=== PATIENT | female | born 1965 | race African-American/Black ===

== ENCOUNTER → 2016-06-19 | Outpatient (CLI) | payer BC, OTHER | LOC: RAD 10:50 | PROVIDERS: ATTEND Internal Medicine | DX: R74.9 Abnormal serum enzyme level, unspecified (principal); K76.89 Other specified diseases of liver | CPT/HCPCS: 76700; 93976 ==

== ENCOUNTER → 2016-06-20 | Outpatient (CLI) | payer BC | LOC: RAD 13:20 | PROVIDERS: ATTEND Internal Medicine | DX: D37.6 Neoplasm of uncertain behavior of liver, gallbladder and bile ducts (principal) | CPT/HCPCS: 74183; A9576 ==

== ENCOUNTER → 2016-09-04 | Outpatient (CLI) | payer BC ==
--- NOTE | 2016-09-04 13:18 | RADIOLOGY REPORT (SQ) ---
EXAM DESCRIPTION: MRI LUMBAR SPINE WITHOUT COMPLETED DATE/TIME: 09/04/2016 12:20 pm REASON FOR STUDY: SPINAL STENOSIS, LUMBAR REGION M48.06 SPINAL STENOSIS, LUMBAR REGION M25.561 CORINNA N IN RIGHT KNEE COMPARISON: None. TECHNIQUE: Sagittal and Axial imaging includes T1, T2, STIR and gradient echo sequences. Coronal T2/ HASTE imaging. LIMITATIONS: None. FINDINGS: VISUALIZED UPPER ABDOMEN: Limited evaluation. No acute or suspicious findings suggested. SEGMENTATION: No transitional anatomy. The lowest well-developed disc space is labeled L5-S1. ALIGNMENT: Anatomic. VERTEBRAE: Intact. BONE MARROW: Somewhat heterogenous marrow signal consistent with a mixture of red and yellow marrow. No marrow replacement. DISC SIGNAL: Normal. No significant abnormal signal or loss of height. POSTERIOR ELEMENTS: Generally intact. No pars defect evident. HARDWARE: None in the spine. CORD AND CONUS: Normal in size and signal intensity. Conus at the appropriate level. SOFT TISSUES: No aortic aneurysm seen. No bulky retroperitoneal adenopathy or mass. No paraspinal mas s or fluid. L1-L2: No significant spinal stenosis or exit foraminal stenosis. L2-L3: No significant spinal stenosis or exit foraminal stenosis. L3-L4: Mild facet arthropathy. No disc bulge. No significant spinal stenosis or exit foraminal sten osis. L4-L5: Mild -moderate facet arthropathy. No disc bulge. No significant spinal stenosis or exit fora nakia stenosis. L5-S1: Right paracentral disc protrusion with right lateral recess stenosis and impingement of the ri ght S1 nerve root. There is also a right exit foraminal stenosis. LOWER THORACIC: Incompletely imaged. No stenosis seen. SACRUM: Visualized upper sacrum intact. OTHER: No other significant findings. IMPRESSION: 1. RIGHT PARACENTRAL DISC PROTRUSION AT L5-S1 WITH RIGHT LATERAL RECESS STENOSIS AND IMPINGEMENT OF T HE RIGHT S1 NERVE ROOT. RIGHT EXIT FORAMINAL STENOSIS. 2. THE REMAINDER OF THE LUMBAR SPINE IS OTHERWISE UNREMARKABLE, OTHER THAN MILD FACET ARTHROPATHY. TECHNICAL DOCUMENTATION: JOB ID: [id number] [employer]- All Rights Reserved
--- NOTE | 2016-09-05 09:44 | RADIOLOGY REPORT (SQ) ---
EXAM DESCRIPTION: MRI RT LOWER JOINT WITHOUT COMPLETED DATE/TIME: 09/04/2016 12:20 pm REASON FOR STUDY: RT KNEE PAIN M48.06 SPINAL STENOSIS, LUMBAR REGION M25.561 PAIN IN RIGHT KNEE COMPARISON: None. TECHNIQUE: Rightknee images acquired and stored on PACS. Multiplanar images include fat sensitive s equences as T1, water sensitive sequences as FST2 or STIR, cartilage sensitive sequences as FSPD, and gradient echo sequences. LIMITATIONS: Motion. FINDINGS: JOINT AND BURSAE: No effusion. BONE CORTEX AND MARROW: No alteration of signal to suggest marrow replacement. No worrisome bone lesi ons. No occult fracture. ACL: Ganglion cyst along the posterior margin measuring about 1 x 1.5 cm. PCL: Intact. MCL: Intact. No periligamentous edema or fluid. LCL: Intact. No periligamentous edema or fluid. MEDIAL MENISCUS: Increased signal posterior horn abuts the inferior articular surface in the longitud inal plane. No displaced meniscal fragment. LATERAL MENISCUS: Intact. MEDIAL COMPARTMENT: Small osteophytes. Subchondral edema in the tibial plateau near the notch. LATERAL COMPARTMENT: Small osteophytes. PATELLA: Thinning of the articular cartilage. Small osteophytes. Intact retinaculum. EXTENSOR MECHANISM: Intact. Quadriceps and patella tendons normal. SOFT TISSUES: Adjacent muscles and subcutaneous tissues normal. Normal flow void in popliteal artery and vein. OTHER: No other significant finding. IMPRESSION: 1. Small longitudinal tear posterior horn medial meniscus. 2. ACL ganglion cyst. 3. Osteoarthritis. TECHNICAL DOCUMENTATION: JOB ID: [id number] All Rights Reserved
== END ==
LOC: RAD 10:27
PROVIDERS: ATTEND Internal Medicine
DX: M48.06 Spinal stenosis, lumbar region (principal); M25.561 Pain in right knee; M17.11 Unilateral primary osteoarthritis, right knee
CPT/HCPCS: 72148

== ENCOUNTER 2016-09-20 06:26 | Day surgery (SDC) | payer BC ==
[~2016-09-20 06:26] MED LIST: CEFAZOLIN 1 GM/D5W RTU 1 GM/50 ML RTUPB IV PRN
[2016-09-20] MEDS ORDERED: MIDAZOLAM 2 MG/2 ML INJ ONE (06:36)
[2016-09-20] MEDS ORDERED: FENTANYL CITRATE INJ/PF 100 MCG/2 ML AMPUL ONE (06:36)
[2016-09-20] MEDS ORDERED: DEXMEDETOMIDINE INJ 80 MCG/20 ML VIAL IV ONE (06:36)
[2016-09-20] MEDS ORDERED: LIDOCAINE 0.5% INJ-PF (5 MG/ML) 50 ML SDV ONE (06:37)
[2016-09-20] MEDS ORDERED: PROPOFOL INJ 200 MG/20 ML VIAL IV ONE (06:37)
[2016-09-20] MEDS ORDERED: BUPIVACAINE HCL 0.5 % INJ/PF 30 ML SDV ONE (07:20)
[2016-09-20] MEDS ORDERED: LIDOCAINE 2% INJ (20 MG/ML) 20 ML MDV ONE (07:20)
[2016-09-20] MEDS ORDERED: KETAMINE HCL INJ 500 MG/10 ML VIAL ONE (07:52)
[2016-09-20] MEDS: NORMAL SALINE INJ/PF 0.9% 10 ML SDV ONE ×2 (08:45)
[2016-09-20] MEDS: POLYMYXIN B SULFATE INJ 500000 UNIT VIAL ONE ×2 (08:45)
[2016-09-20] MEDS: BACITRACIN INJ 50,000 UNIT VIAL ONE ×2 (08:45)
[2016-09-20] MEDS: BUPIVACAINE INJ/PF LIPOSOME/PF 266 MG/20 ML SDV ONE ×2 (09:05)
[2016-09-20] MEDS ORDERED: GLYCOPYRROLATE INJ 0.4 MG/2 ML VIAL ONE (09:34)
--- NOTE | 2016-09-20 10:19 | SURGICARE DISCHARGE SUMMARY E ---
[facility] Discharge Summary NAME: Madina SAUCEDA AGE: 51Y ADMITTED: 09/20/2016 DISCHARGED: 09/20/2016 SURGICAL PROCEDURE: Correction of bunion via Moses osteotomy with internal screw fixation, right foot. POSTOPERATIVE DIAGNOSIS: Hallux abductovalgus, right foot. SURGEON: Emma Jones DPM CASH REGISTER SERVICER: Daniel Abdul DPM HOSPITAL COURSE: The patient was admitted to [facility] with the chief complaint of a painful bunion on her right foot. She stated that she has had it for a number of years and it had gotten worse over the past year, especially whenever she has to wear shoes. The patient had undergone conservative treatment, including a steroid injection, with no relief of her symptoms. She underwent the above surgical procedure without any complications and was transferred to the recovery room. She was discharged with an ice pack and a surgical shoe. She was given postoperative instructions, including no weightbearing on the surgical foot. She was given postoperative prescriptions for Dilaudid 4 mg #48, Phenergan 25 mg #24, and cephalexin 500 mg #4. She was given a follow-up appointment in the doctor's office in 1 week, and the patient was discharged from [facility]. DICTATING PHYSICIAN: EMMA JONES D.P.M. [id number] PHY#: [id number] ID: [id number] JOB#: [id number] ACCT: [id number] cc:EMMA JONES DPM >
--- NOTE | 2016-09-20 10:51 | [facility]ARE OPERATIVE REPORT E ---
[facility] Operative Report NAME: JORGE SAUCEDA AGE: 51Y DATE OF SURGERY: 09/20/2016 ROOM: PREOPERATIVE DIAGNOSIS: Hallux abductovalgus right foot. POSTOPERATIVE DIAGNOSIS: Hallux abductovalgus right foot. SURGICAL PROCEDURE: Correction of bunion via Moses osteotomy with internal screw fixation right foot. SURGEON: CHAPIS ANDREWS DPM MARKET RESEARCHER: Daniel Abdul DPM PROCEDURE: Following induction of IV and regional local anesthesia, the right foot and leg were prepped and draped in the usual sterile manner. A pneumatic tourniquet was placed around the right ankle and inflated to 250 mmHg after exsanguination of the limb via Esmarch bandage. The following surgical procedure was then performed: Correction of bunion via Moses osteotomy with internal screw fixation, right foot. Attention was directed to the dorsal aspect of the first metatarsophalangeal joint of the right foot, where an approximately 5 cm dorsal linear incision was made. The incision was deepened via sharp dissection. All bleeders were clamped and Bovied as necessary for the purposes of hemostasis. A capsular incision was made in the same manner as the original skin incision and was made medial to the extensor hallucis longus tendon. The capsule was then reflected medially and laterally from the bone. This brought into view the hypertrophied medial eminence of the first metatarsal head. Utilizing a Samina sagittal saw, this hypertrophied eminence was osteotomized parallel to the long axis of the bone and removed in toto from the wound. Attention was directed to the first interspace. Utilizing blunt dissection, the transverse adductor tendon was identified and sharply incised. Attention was directed back to the medial aspect of the first metatarsal head. Utilizing a [place] sagittal saw, Moses type osteotomy was then performed with the apex being distal and the wings plantar and dorsal at approximately a 60 degree angle. This was a through and through osteotomy. The capital fragment was then distracted and shifted laterally approximately 5 mm and packed down on the bone. The osteotomy was then temporarily fixated with a 0.045 K-wire. An x-ray was taken to make sure that the wire was in good position and that the capital fragment had been shifted far enough laterally, which it had and the first metatarsophalangeal joint was in an anatomically and correct position. A reamer measure was then threaded down the guidewire and a hole was reamed for the head of the screw and it was noted that an 18 mm 3.0 cancellous screw would be needed. The distal aspect of the osteotomy was then over drilled utilizing a 2.0 cannulated drill bit. The 18 mm 3.0 cannulated screw was then threaded down the guidewire and tightened down until the osteotomy was closed. The guidewire was then removed. It was decided at this time that since the patient's bone was rather soft, that a second screw would be necessary. A second screw was placed parallel to the first and approximately 0.5 cm proximal to it. The same 0.045 guidewire was then used for the exact same procedure that was done for the 18 mm screw was then performed for the next screw and it was noted this one needed a 16 mm 3.0 cannulated screw. Both screws were then tightened down again. An x-ray was taken and it was noted that the first metatarsophalangeal joint was in an anatomically correct position and that the osteotomy was closed down on itself and stably fixated. The redundant bone on the medial aspect of the first metatarsal head was then osteotomized parallel to the long axis of the bone utilizing a Step-In sagittal saw. The medial aspect of the first metatarsal head was then rasped smooth utilizing a Step-In crosscut rasp. It was noted at this time that there was hypertrophy of bone along the dorsal aspect at the base of the proximal phalanx and this was removed utilizing a rongeur. The area was then flushed with copious amounts of an antibacterial saline solution. Bone wax was then applied to the medial aspect of the first metatarsal. The capsule was then coapted and maintained utilizing simple interrupted sutures of 3-0 Vicryl. The extensor hallucis longus tendon was then tacked medially utilizing simple interrupted sutures of 3-0 Vicryl. The surgical site was then injected utilizing a total of 18 mL of Exparel. The subcutaneous tissue was then coapted and maintained utilizing simple interrupted sutures of 4-0 Vicryl and the skin was coapted and maintained utilizing a running subcuticular suture of 5-0 Vicryl. The foot was then cleansed with an alcohol foam and an MARIA DEL CARMEN and Steri-Strips were then applied to the incision. A dry sterile dressing was then applied consisting of Noe silk, 4 x 4, Conform, Kerlix and Coban. The pneumatic tourniquet was released. It was noted that all digits were warm and viable. The patient was transferred to the recovery room. DICTATING PHYSICIAN: CHAPIS ANDREWS D.P.M. [id number] PHY#: [id number] ID: [id number] JOB#: [id number] ACCT: [id number] cc:CHAPIS ANDREWS DPM > MTDD
--- NOTE | 2016-09-20 14:32 | RADIOLOGY REPORT (SQ) ---
EXAM DESCRIPTION: NO CHG FLUORO COMPLETE DATE/TIME: 09/20/2016 2:26 pm REASON FOR STUDY: RIGHT FOOT JAY BUNIONECTOMY M20.11 HALLUX VALGUS (ACQUIRED), RIGHT FOOT FINDINGS: Please see combined report for performance of procedure and radiologic supervision and int erpretation. IMPRESSION: Please see combined report for performance of procedure and radiologic supervision and i nterpretation.
--- NOTE | 2016-09-20 14:33 | RADIOLOGY REPORT (SQ) ---
EXAM DESCRIPTION: FOOT RIGHT 2 VIEWS COMPLETED DATE/TIME: 09/20/2016 2:26 pm REASON FOR STUDY: RIGHT FOOT JAY BUNIONECTOMY M20.11 HALLUX VALGUS (ACQUIRED), RIGHT FOOT COMPARISON: None. FLUOROSCOPY TIME: 0.14 seconds 2 images saved to PACS. TECHNIQUE: Intra-operative images acquired during surgical procedure to evaluate progress. NUMBER OF IMAGES: 2 LIMITATIONS: None. FINDINGS: Fluoroscopy was provided for intraoperative procedure. Please refer to the operative repo rt for further discussion. IMPRESSION: IMAGE(S) OBTAINED DURING PROCEDURE. COMMENT: Quality ID [id number]: Final reports for procedures using fluoroscopy that document radiation exp osure indices, or exposure time and number of fluorographic images (if radiation exposure indices are not available) Please consult full operative report of the attending physician for description of the procedure. TECHNICAL DOCUMENTATION: JOB ID: [id number] [employer]- All Rights Reserved
== END 2016-09-20 10:29 | disposition home or self-care (01) ==
LOC: SC 06:26
PROVIDERS: ATTEND Podiatrist Foot Surgery
PROC: 0QSQ04Z Reposition Right Toe Phalanx with Internal Fixation Device, Open Approach (ICD-10-PCS; principal; 2016-09-20 07:30)
DX: M20.11 Hallux valgus (acquired), right foot (principal); E78.00 Pure hypercholesterolemia, unspecified; I10 Essential (primary) hypertension; M10.9 Gout, unspecified; A60.00 Herpesviral infection of urogenital system, unspecified; Z88.0 Allergy status to penicillin; Z79.899 Other long term (current) drug therapy; Z98.84 Bariatric surgery status
CPT/HCPCS: 28296; 73620; C1713; C1769; J2250; J3490 ×7; J0690; J3010; J2704; C9290; 01480

== ENCOUNTER → 2017-04-04 | Outpatient (CLI) | payer BC ==
--- NOTE | 2017-04-04 18:54 | WOMENS IMAGING REPORT ---
EXAM DESCRIPTION: 3D SCREENING MAMMO BILAT COMPLETED DATE/TIME: 04/04/2017 8:12 am REASON FOR STUDY: ROUTINE SCREENING; Z12.31 Z12.31 ENCNTR SCREEN MAMMOGRAM FOR MALIGNANT NEOPLASM O F CORDELL COMPARISON: Multiple since 2008 TECHNIQUE: Standard craniocaudal and mediolateral oblique views of each breast recorded using digita l acquisition and breast tomosynthesis. LIMITATIONS: None. FINDINGS: No masses, calcifications or architectural distortion. No areas of suspicion. Read with the assistance of CAD. .[facility] - R2 Cenova Version 1.3 .[facility] - R2 Cenova Version 1.3 .[facility] - R2 Cenova Version 2.4 .[facility] - R2 Cenova Version 2.4 .[facility] - R2 Establishment Guide Version 9.2 IMPRESSION: NORMAL MAMMOGRAM. BIRADS 1. BREAST DENSITY: b. There are scattered areas of fibroglandular density. BIRAD: 1 NEGATIVE RECOMMENDATION: ROUTINE SCREENING Please continue yearly bilateral screening tomosynthesis in March 2018 COMMENT: The patient has been notified of the results by letter per SA requirements. Additional no tification policies are in place for contacting patient with suspicious or incomplete findings. Quality ID #225: The [employer] [employer] recommends an annual screening mammogram for women aged 40 years or over. This facility utilizes a reminder system to ensure that all patients receive reminder letters, and/or direct phone calls for appointments. This includes reminders for routine scr eening mammograms, diagnostic mammograms, or other Breast Imaging Interventions when appropriate. Th is patient will be placed in the appropriate reminder system. The [place] [employer] (ACR) has developed recommendations for screening MRI of the breast s in certain patient populations, to be used in conjunction with mammography. Breast MRI surveillanc e may be appropriate for women with more than 20% lifetime risk of developing breast cancer as deter mined by genetic testing, significant family history of the disease, or history of mantle radiation f or Hodgkins Disease. ACR Practice Guidelines 2008. DBT Technology DBT is a type of tomographic mammography. With conventional mammography, overlapping breast tissue ma y make lesions difficult to detect, even with good compression. DBT uses an x-ray tube that rotates a round the breast, taking images at different angles. These images are then combined to create thin sl ices of the breast that the radiologist can view as a 3D reconstruction. The [employer] unit can perform full-field digital mammograms (2D imaging); or DBT (3D imaging); or both, in a combination mode that quickly performs both the mammogram and the tomosynthesis scan while the breast is still compressed. PQRS 6045F: Fluoroscopic imaging is not utilized for breast tomosynthesis. TECHNICAL DOCUMENTATION: FINDING NUMBER: (1) ASSESSMENT: (1) JOB ID: [id number] [employer]- All Rights Reserved
== END ==
LOC: WI 08:00
PROVIDERS: ATTEND Obstetrics & Gynecology Gynecology
DX: Z12.31 Encounter for screening mammogram for malignant neoplasm of breast (principal)
CPT/HCPCS: 77063; G0202; 77067

== ENCOUNTER → 2018-04-19 | Outpatient (CLI) | payer BC ==
--- NOTE | 2018-04-19 16:59 | WOMENS IMAGING REPORT ---
EXAM DESCRIPTION: 3D SCREENING MAMMO BILAT COMPLETED DATE/TIME: 04/19/2018 3:44 pm REASON FOR STUDY: SCREENING MAMMO Z12.31 ENCNTR SCREEN MAMMOGRAM FOR MALIGNANT NEOPLASM OF CORDELL COMPARISON: Multiple since 2008 TECHNIQUE: Standard craniocaudal and mediolateral oblique views of each breast recorded using digita l acquisition and breast tomosynthesis. LIMITATIONS: None. FINDINGS: No masses, calcifications or architectural distortion. No areas of suspicion. Read with the assistance of CAD. .[facility] - R2 Cenova Version 1.3 .[facility] - R2 Cenova Version 1.3 .[facility] - R2 Cenova Version 2.4 .[facility] - R2 Cenova Version 2.4 .[facility] - R2 Tram Inspector Version 9.2 IMPRESSION: NORMAL MAMMOGRAM. BIRADS 1. BREAST DENSITY: b. There are scattered areas of fibroglandular density. BIRAD: 1 NEGATIVE RECOMMENDATION: ROUTINE SCREENING COMMENT: The patient has been notified of the results by letter per SA requirements. Additional no tification policies are in place for contacting patient with suspicious or incomplete findings. Quality ID #225: The [employer] recommends an annual screening mammogram for women aged 40 years or over. This facility utilizes a reminder system to ensure that all patients receive reminder letters, and/or direct phone calls for appointments. This includes reminders for routine scr eening mammograms, diagnostic mammograms, or other Breast Imaging Interventions when appropriate. Th is patient will be placed in the appropriate reminder system. The [employer] (ACR) has developed recommendations for screening MRI of the breast s in certain patient populations, to be used in conjunction with mammography. Breast MRI surveillanc e may be appropriate for women with more than 20% lifetime risk of developing breast cancer as deter mined by genetic testing, significant family history of the disease, or history of mantle radiation f or Hodgkins Disease. ACR Practice Guidelines 2008. DBT Technology DBT is a type of tomographic mammography. With conventional mammography, overlapping breast tissue ma y make lesions difficult to detect, even with good compression. DBT uses an x-ray tube that rotates a round the breast, taking images at different angles. These images are then combined to create thin sl ices of the breast that the radiologist can view as a 3D reconstruction. The [employer] unit can perform full-field digital mammograms (2D imaging); or DBT (3D imaging); or both, in a combination mode that quickly performs both the mammogram and the tomosynthesis scan while the breast is still compressed. PQRS 6045F: Fluoroscopic imaging is not utilized for breast tomosynthesis. TECHNICAL DOCUMENTATION: FINDING NUMBER: (1) ASSESSMENT: (1) JOB ID: [id number] [employer]- All Rights Reserved Reading location - IP/workstation name: [email or web address]
== END ==
LOC: WI 15:16
PROVIDERS: ATTEND Obstetrics & Gynecology Gynecology
DX: Z12.31 Encounter for screening mammogram for malignant neoplasm of breast (principal)
CPT/HCPCS: 77063; 77067

== ENCOUNTER → 2019-05-01 | Outpatient (CLI) | payer BC, OTHER ==
--- NOTE | 2019-05-01 09:29 | WOMENS IMAGING REPORT ---
EXAM DESCRIPTION: 3D SCREENING MAMMO BILAT COMPLETED DATE/TIME: 05/01/2019 9:03 am REASON FOR STUDY: Z12.31 ENCOUNTER FOR SCREENING MAMMOGRAM FOR MALIGNANT NEOPLASM OF BREAST Z12.31 ENCNTR SCREEN MAMMOGRAM FOR MALIGNANT NEOPLASM OF CORDELL COMPARISON: [id number] EXAM PARAMETERS: Views: Standard craniocaudal and mediolateral oblique views of each breast recorded using digital acquisition and breast tomosynthesis. Read with the assistance of CAD. .[facility] - R2 Balloon Maker Version 9.2 LIMITATIONS: None. FINDINGS: No suspicious masses, suspicious calcifications or architectural distortion. No areas of c oncern. IMPRESSION: NEGATIVE MAMMOGRAM. BIRADS 1. BREAST DENSITY: b. There are scattered areas of fibroglandular density. BIRAD: ASSESSMENT: 1 NEGATIVE RECOMMENDATION: ROUTINE SCREENING COMMENT: The patient has been notified of the results by letter per MQSA requirements. Additional no tification policies are in place for contacting patient with suspicious or incomplete findings. Quality ID #225: The [place] [employer] recommends an annual screening mammogram for women aged 40 years or over. This facility utilizes a reminder system to ensure that all patients receive reminder letters, and/or direct phone calls for appointments. This includes reminders for routine scr eening mammograms, diagnostic mammograms, or other Breast Imaging Interventions when appropriate. Th is patient will be placed in the appropriate reminder system. TECHNICAL DOCUMENTATION: FINDING NUMBER: (1) ASSESSMENT: (1) JOB ID: [id number] [employer]- All Rights Reserved Reading location - IP/workstation name: [email or web address]
== END ==
LOC: WI 07:39
PROVIDERS: ATTEND Obstetrics & Gynecology Gynecology
DX: Z12.31 Encounter for screening mammogram for malignant neoplasm of breast (principal)
CPT/HCPCS: 77063; 77067

== ENCOUNTER 2019-11-10 18:20 | Emergency (ER) | payer BC, OTHER ==
--- NOTE | 2019-11-10 19:44 | ER Document Report ---
ED Medical Screen (RME) - General Chief Complaint: Abdominal Pain Stated Complaint: ABDOMINAL PAIN Time Seen by Provider: 11/10/19 19:37 Primary Care Provider: LIYAH SPRAGUE MD [Primary Care Provider] - Follow up as needed Notes: Patient is a 54-year-old female who presents the emergency department with a chief complaint of mid upper abdominal pain. Patient has history of gastric bypass surgery in the past. Patient states that around 2:00 this afternoon she developed some pain in her mid upper abdomen. Exam: Mildly tender mid upper abdomen. I have greeted and performed a rapid initial assessment of this patient. A comprehensive ED assessment and evaluation of the patient, analysis of test results and completion of medical decision making process will be conducted by an additional ED providers. TRAVEL OUTSIDE OF THE [place] IN LAST 30 DAYS: No - Related Data Allergies/Adverse Reactions: Penicillins Allergy (Intermediate, Verified 09/13/16 13:12) Hives codeine [Codeine] Adverse Reaction (Intermediate, Verified 09/13/16 13:12) Nausea Home Medications: cetritizine.lisinopril,iron,calcium,valacyclovir Past Medical History - Past Medical History Cardiac Medical History: Reports: Hx Hypercholesterolemia, Hx Hypertension Denies: Hx Heart Attack Pulmonary Medical History: Denies: Hx Asthma Neurological Medical History: Denies: Hx Cerebrovascular Accident, Hx Seizures GI Medical History: Denies: Hx Hepatitis, Hx Hiatal Hernia, Hx Ulcer Psychiatric Medical History: Denies: Hx Depression Infectious Medical History: Denies: Hx Hepatitis Past Surgical History: Reports: Hx Cholecystectomy, Hx Gastric Bypass Surgery. Denies: Hx Hysterectomy, Hx Mastectomy, Hx Open Heart Surgery, Hx Pacemaker Physical Exam - Vital signs Vitals: Temp Pulse Resp BP Pulse Ox 98.6 F 64 18 130/80 H 100 11/10/19 18:31 11/10/19 18:31 11/10/19 18:31 11/10/19 18:31 11/10/19 18:31 Course - Vital Signs Vital signs: Temp Pulse Resp BP Pulse Ox 98.6 F 64 18 130/80 H 100 11/10/19 18:31 11/10/19 18:31 11/10/19 18:31 11/10/19 18:31 11/10/19 18:31 Doctor's Discharge - Discharge Referrals: LIYAH SPRAGUE MD [Primary Care Provider] - Follow up as needed
[2019-11-10 20:25] LABS: APPEARANCE,URINE CLEAR; BILIRUBIN,URINE NEGATIVE (NEGATIVE); COLOR,URINE YELLOW; GLUCOSE, URINE NEGATIVE (NEGATIVE); KETONES,URINE TRACE mg/dL (NEGATIVE); LEUKOCYTE ESTERASE,URINE NEGATIVE (NEGATIVE); NITRITE,URINE NEGATIVE (NEGATIVE); PROTEIN,URINE NEGATIVE (NEGATIVE); URINE SPECIFIC GRAVITY 1.018
[2019-11-10 20:38] LABS: ABSOLUTE MONOCYTES (AUTO) 0.5 10^3/uL (0.1-1.4); ABSOLUTE NEUT (AUTO) 6.1 10^3/uL (1.7-8.2); EOSINOPHILS % (AUTO) 0.4 % (0-6); TOTAL CELLS COUNTED % (AUTO) 100 %; WHITE BLOOD COUNT 7.8 10^3/uL (4.0-10.5)
[2019-11-10 20:48] LABS: ABSOLUTE LYMPHOCYTES (AUTO) 1.2 10^3/uL (0.5-4.7); BASOPHILS % (AUTO) 0.3 % (0-2); HEMATOCRIT 37.7 % (36.0-47.0); HEMOGLOBIN 13.2 g/dL (12.0-15.5); LYMPHOCYTES % (AUTO) 15.1 % (13-45); MEAN CORPUSCULAR HEMOGLOBIN 31.9 pg (27.0-33.4); MEAN CORPUSCULAR HGB CONC 35.1 g/dL (32.0-36.0); MEAN CORPUSCULAR VOLUME 91 fl (80-97); MONOCYTES % (AUTO) 5.9 % (3-13); PLATELET COUNT 305 10^3/uL (150-450); RED BLOOD COUNT 4.15 10^6/uL (3.72-5.28); RED CELL DISTRIBUTION WIDTH 13.9 % (11.5-14.0); SEGMENTED NEUTROPHILS % (AUTO) 78.3 % (42-78)
[2019-11-10 20:50] LABS: ALBUMIN 4.4 g/dL (3.5-5.0); ALKALINE PHOSPHATASE 122 U/L (38-126); ASPARTATE AMINO TRANSFERASE 586 U/L (14-36); BILIRUBIN,DIRECT 0.3 mg/dL (0.0-0.4); BILIRUBIN,TOTAL 1.2 mg/dL (0.2-1.3); BLOOD UREA NITROGEN 14 mg/dL (7-20); CALCIUM 9.8 mg/dL (8.4-10.2); GLUCOSE 135 mg/dL (75-110); TOTAL PROTEIN 7.4 g/dL (6.3-8.2)
[2019-11-10 21:04] LABS: ANION GAP 6 (5-19); CARBON DIOXIDE 30 mmol/L (22-30); CHLORIDE 100 mmol/L (98-107)
--- NOTE | 2019-11-11 01:24 | ER Document Report ---
ED General - General Chief Complaint: Abdominal Pain Stated Complaint: ABDOMINAL PAIN Time Seen by Provider: 11/10/19 19:37 Primary Care Provider: LIYAH SPRAGEU MD [Primary Care Provider] - Follow up as needed TRAVEL OUTSIDE OF THE [place] IN LAST 30 DAYS: No - HPI Notes: 54-year-old female history of Des-en-Y bypass 2014, cholecystectomy 1986, hypertension, hyperlipidemia presents with abdominal pain for approximately 1 hour prior to arrival. Patient does not recall eating any abnormal foods or large meals or fatty meals and had sudden onset of severe nonradiating epiga stric distention and tenderness associated with 1 episode of vomiting worst at onset and has gradually improved since. Says when pain was worse patient felt swelling in her upper midline abdomen which has since dissipated. patient says she has had several episodes of similar pain per year for the past approximately 5 years since her bypass surgery. Patient says that she previously was admitted to the hospital with abnormal liver labs and that she was taken off of her statin and discharged. Patient had in MRCP in 2017 that as per patient was normal but on my review patient's medical records shows that she had a CBD of 12 mm concerning for choledocholithiasis. Patient has not had any endoscopy/ERCP. Patient denies any chest pain, shortness of breath, lower abdominal pain, pelvic pain, vaginal bleeding or discharge, dysuria urgency or frequency, fever, trauma, dizziness, syncope - Related Data Allergies/Adverse Reactions: Penicillins Allergy (Intermediate, Verified 09/13/16 13:12) Hives codeine [Codeine] Adverse Reaction (Intermediate, Verified 09/13/16 13:12) Nausea Home Medications: cetritizine.lisinopril,iron,calcium,valacyclovir Past Medical History - General Information source: Patient, [facility] Records - Social History Smoking Status: Never Smoker Family History: Reviewed & Not Pertinent Patient has homicidal ideation: No - Past Medical History Cardiac Medical History: Reports: Hx Hypercholesterolemia, Hx Hypertension Denies: Hx Heart Attack Pulmonary Medical History: Denies: Hx Asthma Neurological Medical History: Denies: Hx Cerebrovascular Accident, Hx Seizures GI Medical History: Denies: Hx Hepatitis, Hx Hiatal Hernia, Hx Ulcer Psychiatric Medical History: Denies: Hx Depression Infectious Medical History: Denies: Hx Hepatitis Past Surgical History: Reports: Hx Cholecystectomy, Hx Gastric Bypass Surgery. Denies: Hx Hysterectomy, Hx Mastectomy, Hx Open Heart Surgery, Hx Pacemaker Review of Systems - Review of Systems Notes: REVIEW OF SYSTEMS: CONSTITUTIONAL : Denies fever, chills, or sweats. EENT: Denies recent cold/sinus symptoms, denies throat pain CARDIOVASCULAR: Denies chest pain, VAHE RESPIRATORY: Denies cough, denies shortness of breath. GASTROINTESTINAL: +abdominal pain, +nausea/vomiting. GENITOURINARY: Denies difficulty urinating, painful urination. FEMALE GENITOURINARY: Denies abnormal vaginal bleeding, vaginal discharge. MUSCULOSKELETAL: Denies neck pain, back pain. SKIN: Denies rash or skin lesions. HEMATOLOGIC : Denies easy bruising or bleeding. LYMPHATIC: Denies swollen, enlarged glands. NEUROLOGICAL: Denies headache, denies change in gait. PSYCHIATRIC: Denies anxiety or stress or depression. Physical Exam - Vital signs Vitals: Temp Pulse Resp BP Pulse Ox 98.6 F 64 18 130/80 H 100 11/10/19 18:31 11/10/19 18:31 11/10/19 18:31 11/10/19 18:31 11/10/19 18:31 - Notes Notes: PHYSICAL EXAMINATION: GENERAL: Well-appearing, well-nourished and in no acute distress. HEAD: Atraumatic, normocephalic. EYES: Pupils equal round and appropriate constriction, sclera anicteric, conjunctiva are normal. ENT: nares patent, moist mucous membranes. NECK: Normal range of motion, supple without lymphadenopathy LUNGS: Breath sounds clear to auscultation bilaterally and equal. No wheezes rales or rhonchi. HEART: Regular rate and rhythm without murmurs ABDOMEN: Soft, nontender, no guarding, no masses, no CVAT, points to spot where pain is the worst but there is no tenderness there now it is at upper midline abdomen. EXTREMITIES: Normal range of motion, no pitting or edema. No cyanosis. NEUROLOGICAL: Awake, alert, conversing appropriately, moves all extremities spontaneously. PSYCH: Normal mood, normal affect. SKIN: Warm, Dry, normal turgor, no rashes or lesions noted. Course - Re-evaluation Re-evalutation: 11/11/19 01:20 Symptoms concerning for possible retained biliary stones/choledocholithiasis v. Esophageal spasm. Symptoms not consistent with atypical ACS, patient has very focal symptoms and had tenderness when pain was worst and has no exertional symptoms or cardiac history. Concerning findings and chart review of prior CBD enlargement to 12 mm without any intervention since. Transaminitis on labs. I will obtain right upper quadrant ultrasound to assess size of CBD currently. If patient passed stone in CBD is normal size then transaminitis will likely resolve and patient can follow-up outpatient with [facility] end, bariatric surgeon, and PCP. If CBD is enlarged then concern for stone remains and I will transfer patient as this facility does not have capability to care for bariatric patients. Patient currently feels well, does not have any current need for analgesia. 11/11/19 03:56 CBD enlarged on right upper quadrant ultrasound to 9 mm. Given this finding, patient requires transfer for ER PC at bariatric capable facility. Patient's bariatric surgeon was Dr. Ananda Cerrato and he works at [facility] so I initiated transfer there. I spoke to Dr. Suero who has accepted patient to the surgical service. She says that she has surgical floor beds available. 11/11/19 07:30 Patient remains very minimally symptomatic, turned over to Dr. Davis pending transfer to [facility]. - Vital Signs Vital signs: Temp Pulse Resp BP Pulse Ox 97.7 F 55 L 16 110/76 100 11/11/19 03:04 11/11/19 03:04 11/11/19 03:04 11/11/19 06:00 11/11/19 06:01 - Laboratory Result Diagrams: 11/10/19 20:08 11/10/19 20:08 Laboratory results interpreted by me: 11/10/19 11/10/19 11/10/19 20:08 20:08 20:08 Seg Neutrophils % 78.3 H Sodium 135.5 L Glucose 135 H AST 586 H ALT 281 H Urine Ketones TRACE H Urine Urobilinogen 4.0 H Urine Ascorbic Acid 40 H Discharge - Discharge Clinical Impression: Choledocholithiasis Disposition: [facility] Referrals: LIYAH SPRAGUE MD [Primary Care Provider] - Follow up as needed
--- NOTE | 2019-11-11 01:59 | RADIOLOGY REPORT (SQ) ---
CLINICAL INDICATION: ap postchole r/o choledocholithiasis (need cbd mm). . TECHNIQUE: Real time multiplanar ultrasonographic hunter scale imaging was obtained of the right upper quadrant. 52 images obtained. COMPARISON: None. CORRELATION: None. FINDINGS: The liver is heterogeneous. No evidence of intrahepatic or extrahepatic biliary ductal dilatation. The common bile duct measures 9 millimeters. No filling defects are identified. The gallbladder is not seen. By report surgically absent. Portal vein patent and appropriate in the visualized portion. The midline structures are unremarkable in the visualized portion. . IMPRESSION: Dilatation of the common bile duct at 9 mm..
[2019-11-11 14:06] VITALS: BP 116/80
--- NOTE | 2019-11-11 15:06 | ER Document Report ---
Doctor's Note Notes: 11/11/19 15:01 Patient's care was turned over to me about 6:30 AM this morning while she was pending transfer to [facility]. She was on a waiting list for a bed. 12:45 PM her surgeon who did her gastric bypass, Dr. Cerrato called to inquire about her symptoms and lab work. We reviewed the ultrasound from today and the lab work from today along with previous MRCP's and he compared it to MRCP's and ultrasounds done at [facility]. He felt that the patient did not need emergent ERCP and could safely follow-up in the office this week. We discussed the outpatient management and agreed that a proton pump inhibitor such as Protonix, along with Carafate would be a good idea in case the pains she has been having could be ulcer related or related to one of her anastomoses. She will also be provided pain medication to take if she has another of her pain attacks.
== END 2019-11-11 14:07 | disposition home or self-care (01) ==
LOC: ER 18:20
DX: K80.50 Calculus of bile duct without cholangitis or cholecystitis without obstruction (principal); R10.13 Epigastric pain; R11.2 Nausea with vomiting, unspecified; R79.89 Other specified abnormal findings of blood chemistry; I10 Essential (primary) hypertension; Z98.84 Bariatric surgery status; Z79.899 Other long term (current) drug therapy; Z90.49 Acquired absence of other specified parts of digestive tract; Z88.0 Allergy status to penicillin
CPT/HCPCS: 36415; 76705; 80053; 81001; 82550; 83690; 85025; 99284